=== PATIENT | male | born 1990 | race Caucasian/White ===

== ENCOUNTER 2021-03-01 12:18 | Emergency (ER) | payer MEDICAID, SELFPAY ==
[~2021-03-01] VITALS: Ht 167.6 cm; Wt 95.3 kg
[2021-03-01 12:18] VITALS: BP_SYST 112
--- NOTE | 2021-03-01 12:27 | NUR ---
Placed in room H1 . Placed on classroom monitor, blood pressure machine and pulse oximeter. To gown for exam. Side rails up.
--- NOTE | 2021-03-01 12:30 | NUR ---
Pt brought by ambulance, A&Ox3 ,pt presents to ER with tonic-clonic seizure aprox 30 seconds , skin pink and warm , cap refill <3, VSS, respirations even and unlabored.
--- NOTE | 2021-03-01 12:50 | NUR ---
Dr Zee evaluating patient at bedside
[2021-03-01 14:10] LABS: BASOPHILS # (AUTO) 0.1 K/uL (0.0-0.2); BASOPHILS % (AUTO) 0.7 % (0.0-2.0); EOSINOPHILS # (AUTO) 0.1 K/uL (0.0-0.4); EOSINOPHILS % (AUTO) 0.7 % (0.0-4.0); HEMATOCRIT 50.7 % (36-54); HEMOGLOBIN 16.8 g/dL (14.0-18.0); LYMPHOCYTES # (AUTO) 1.1 K/uL (1.0-5.5); LYMPHOCYTES % (AUTO) 9.4 % (20.5-51.5); MEAN CORPUSCULAR HEMOGLOBIN 28 pg (27-31); MEAN CORPUSCULAR HGB CONC 33 % (32-36); MEAN CORPUSCULAR VOLUME 86 fL (79.0-98.0); MONOCYTES # (AUTO) 0.7 K/uL (0.0-1.0); MONOCYTES % (AUTO) 6.3 % (1.7-9.3); NEUTROPHILS # (AUTO) 9.7 K/uL (1.8-7.7); NEUTROPHILS % (AUTO) 82.9 % (40.0-70.0); PLATELET COUNT (AUTO) 213 K/uL (130-430); RED BLOOD CELL COUNT(AUTO) 5.93 MIL/uL (4.2-6.2); RED CELL DISTRIBUTION WIDTH 14.4 % (9.0-15.0); WHITE BLOOD COUNT (AUTO) 11.7 K/uL (4.8-10.8)
[2021-03-01 14:23] LABS: CREATININE 0.34 mg/dL (0.55-1.30)
[2021-03-01 14:27] LABS: POTASSIUM 2.8 mmol/L (3.5-5.1)
[2021-03-01 14:28] LABS: CALCIUM 5.3 mg/dL (8.4-11.0)
[2021-03-01] MEDS ORDERED: POTASSIUM CHLORIDE 20 MEQ TAB.PRT.SR PO ONE (14:30)
[2021-03-01 14:31] LABS: TOTAL BILIRUBIN 0.1 mg/dL (0.0-1.0)
[2021-03-01] MEDS ORDERED: POTA-197 PO (14:31)
[2021-03-01] MEDS ORDERED: CALCIUM GLUCONATE 1 GM/10 ML VIAL IVP ONE (15:00)
[2021-03-01] MEDS ORDERED: TOPIRAMATE 100 MG TABLET(Topamax) PO ONE (15:30)
--- NOTE | 2021-03-01 16:10 | NUR ---
PT LAYING ON HALLWAY BED, DENIES DISTRESS. V/S REMAIN NORMAL
[2021-03-01] MEDS ORDERED: TOPI100T39 PO (16:49)
--- NOTE | 2021-03-01 16:56 | NUR ---
PTS MOTHER HERE TO PICK HIM UP, IV REMOVED
[2021-03-01 16:57] VITALS: BP_SYST 113
--- NOTE | 2021-03-01 16:57 | NUR ---
Patient given written and verbal discharge instructions and verbalizes understanding. ER MD discussed with patient the results and treatment provided. Patient in stable condition. ID arm band removed. IV catheter removed intact and dressing applied, no active bleeding. Rx of TOPOMAX given. Patient educated on pain management and to follow up with PMD. Pain Scale 0. Opportunity for questions provided and answered. Medication side effect fact sheet provided.
--- NOTE | 2021-03-01 16:58 | NUR ---
PTS MOTHER PROVIDED WITH ALL D/C INFO PT INTELLECTUALLY CHALLENGED
== END 2021-03-01 16:57 | disposition home or self-care (01) ==
LOC: EDBD 12:18 → SED 12:18
DX: R56.9 Unspecified convulsions (principal); E87.6 Hypokalemia; E83.51 Hypocalcemia; Z79.899 Other long term (current) drug therapy
CPT/HCPCS: 36415; 80053; 83735; 85025; 93005; 96374; 99284; J0610